=== PATIENT | male | born 1955 | race Caucasian/White ===

== ENCOUNTER 2017-12-01 06:30 | Emergency (ER) | payer OTHER ==
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
[2017-12-01 08:37] VITALS: BP 157/93; PULSE 60; RESP 18; TEMP 98.3
== END 2017-12-01 08:15 | disposition home or self-care (01) ==
LOC: EC 06:30
DX: S00.83XA Contusion of other part of head, initial encounter (principal); F17.200 Nicotine dependence, unspecified, uncomplicated; V47.6XXA Car passenger injured in collision with fixed or stationary object in traffic accident, initial encounter; W22.12XA Striking against or struck by front passenger side automobile airbag, initial encounter; Y92.410 Unspecified street and highway as the place of occurrence of the external cause
CPT/HCPCS: 70450; 72125; 99284

== ENCOUNTER 2018-06-29 07:59 | Emergency (ER) | payer OTHER ==
[2018-06-29 08:07] VITALS: RESP 18; TEMP 98.3
[2018-06-29] MEDS ORDERED: LIDOCAINE 1% INJ 10MG/ML (20 ML MDV) SQ ONE (08:19)
[2018-06-29] MEDS ORDERED: DIPH,PERTUS(ACELL)TETVAC-LF 0.5 ML VIAL IM ONE (08:19)
[2018-06-29] MEDS ORDERED: SODIUM CHLORIDE 0.9% IRRIG 1,000 ML BTL IRRIGATION ONE (08:23)
[2018-06-29] MEDS ORDERED: CEPHALEXIN 500MG STARTER PACK 4 CAP BTL PO STA (08:41)
--- NOTE | 2018-06-29 08:42 | XR ---
Third digit left hand HISTORY: Trauma and pain 3 views of the third digit of the left hand There is a nondisplaced tuft fracture of the third digit of the left hand, lucency present on the fro ntal view. No dislocation. Metallic foreign body is noted overlying the second metacarpal. Soft tissu e swelling noted at the third digit. IMPRESSION: Nondisplaced tuft fracture.
[2018-06-29] MEDS ORDERED: ceFAZolin 1,000 MG VIAL IM STA (08:43)
--- NOTE | 2018-06-29 08:46 | ED ---
Wound/Laceration HPI - General Chief Complaint: Wound/Laceration Stated Complaint: [facility] - finger lac Time Seen by Provider: 06/29/18 08:08 Source: patient, RN notes reviewed Mode of arrival: ambulatory Limitations: no limitations - History of Present Illness Initial Comments: 62-year-old male presents emergency Department with chief complaint of finger l aceration. Patient states that he was trying to fix the tailgate on the heel former trailer states that he pinched it between the tailgate and a sealed King. Patient states it's blistering in open wound. Patient cannot remember when his last tetanus was. Patient denies any difficulty moving his finger. Patient offers no other complaints. - Related Data Previous Rx's Medication Instructions Recorded Cephalexin [Keflex] 500 mg PO Q6HR #28 cap 06/29/18 Allergies Allergy/AdvReac Type Severity Reaction Status Date / Time No Known Allergies Allergy Verified 06/29/18 08:18 Review of Systems ROS Statement: Those systems with pertinent positive or pertinent negative responses have been documented in the HPI. ROS Other: All systems not noted in ROS Statement are negative. Past Medical History Past Medical History: Hypertension History of Any Multi-Drug Resistant Organisms: None Reported Past Surgical History: No Surgical Hx Reported Past Psychological History: No Psychological Hx Reported Smoking Status: Current every day smoker Past Alcohol Use History: Occasional Past Drug Use History: None Reported General Exam Limitations: no limitations General appearance: alert, in no apparent distress Respiratory exam: Present: normal lung sounds bilaterally. Absent: respiratory distress, wheezes, rales, rhonchi, stridor Cardiovascular Exam: Present: regular rate, normal rhythm, normal heart sounds. Absent: systolic murmur, diastolic murmur, rubs, gallop, clicks Extremities exam: Present: other (Left hand third digit there is a 2 cm laceration at the distal tip patient's full range of motion Reflux 2 seconds there is also noted blister proximally 1 cm diameter proximal to the wound) Skin exam: Present: warm, dry Course Vital Signs 06/29/18 08:03 Temperature 98.3 F Pulse Rate 71 Respiratory 18 Rate Blood Pressure 161/99 O2 Sat by Pulse 99 Oximetry Procedures - Laceration Laceration #1 Consent Obtained: verbal consent Site: hand (Left hand third digit) Size (cm): 2 Description: linear Depth: simple, single layer Anesthetic Used: lidocaine 1%, without epi Anesthesia Technique: local infiltration Amount (mls): 3 Pre-repair: wound explored, irrigated extensively, deep structures intact Type of Sutures: nylon Size of Sutures: 4-0 Number of Sutures: 4 Technique: simple, interrupted Patient Tolerated Procedure: well, no complications Medical Decision Making - Medical Decision Making 62-year-old male presented for finger laceration. This was thoroughly cleaned, closed. Patient does have a tuft fracture. Patient was started on antibiotics, placed in a finger splint and will follow-up for recheck. Disposition Clinical Impression: Open finger fracture Disposition: HOME SELF-CARE Condition: Stable Instructions (If sedation given, give patient instructions): Care For Your Stitches (ED), Finger Fracture (ED) Additional Instructions: Have sutures removed in 10 days.Please return to the Emergency Department if symptoms worsen or any other concerns. Prescriptions: Cephalexin [Keflex] 500 mg PO Q6HR #28 cap Is patient prescribed a controlled substance at d/c from ED?: No Referrals: None,Stated [Primary Care Provider] - 1-2 days Time of Disposition: 08:46
[2018-06-29 09:13] VITALS: BP 135/93; PULSE 66
== END 2018-06-29 09:13 | disposition home or self-care (01) ==
LOC: EC 07:59
DX: S62.663B Nondisplaced fracture of distal phalanx of left middle finger, initial encounter for open fracture (principal); F17.200 Nicotine dependence, unspecified, uncomplicated; Z23 Encounter for immunization; W23.0XXA Caught, crushed, jammed, or pinched between moving objects, initial encounter; Y93.89 Activity, other specified; Y92.69 Other specified industrial and construction area as the place of occurrence of the external cause; Y99.0 Civilian activity done for income or pay
CPT/HCPCS: 73140; 90715; 99283; 12001; 96372; 90471; J0690; J2001

== ENCOUNTER 2020-02-08 11:35 | Inpatient (IN) | payer OTHER ==
[2020-02-08] MEDS ORDERED: SODIUM CHLORIDE 0.9% 500 ML 500 ML IV STA (12:03)
[2020-02-08 12:13] LABS: Glucose,Whole Blood 160 mg/dL (75-99)
[2020-02-08 12:17] LABS: Basophils % (A) 0 %; Eosinophils # (A) 0.1 k/uL (0-0.7); Eosinophils % (A) 2 %; HCT 46.8 % (39.0-53.0); HGB 15.8 gm/dL (13.0-17.5); Lymphocytes # (A) 1.4 k/uL (1.0-4.8); Lymphocytes % (A) 20 %; MCH 31.7 pg (25.0-35.0); MCHC 33.8 g/dL (31.0-37.0); MCV 94.1 fL (80.0-100.0); Monocytes # (A) 0.4 k/uL (0-1.0); Monocytes % (A) 6 %; Neutrophils # (A) 5.1 k/uL (1.3-7.7); Neutrophils % (A) 71 %; Platelet Count 254 k/uL (150-450); RBC 4.97 m/uL (4.30-5.90); RDW 12.9 % (11.5-15.5); WBC 7.1 k/uL (3.8-10.6)
--- NOTE | 2020-02-08 12:18 | ED ---
General Adult HPI - General Chief complaint: Dizziness Stated complaint: syncope Time Seen by Provider: 02/08/20 11:51 Source: patient, family, RN notes reviewed, old records reviewed Mode of arrival: wheelchair Limitations: no limitations - History of Present Illness Initial comments: 64-year-old male presenting for evaluation of syncope. Patient had a syncopal episode yesterday he states he believes he was only unconscious for approximately several seconds. He was taking out trash at the time. He is uncertain if he hit his head. He is not on any blood thinners. He states he's felt lightheaded for the past several days. This is worse with standing. He denies current chest pain or dyspnea. He states that on Friday which was 4 days prior to arrival he had an episode of substernal chest pain which lasted several hours. He did not seek medical attention at this time. He has no known history of coronary artery disease. He has history of current tobacco use and states he does drink alcoholic occasional but has not had a drink in the past one week. - Related Data Home Medications Medication Instructions Recorded Confirmed No Known Home Medications 02/08/20 02/08/20 Allergies Allergy/AdvReac Type Severity Reaction Status Date / Time No Known Allergies Allergy Verified 02/08/20 13:06 Review of Systems ROS Statement: Those systems with pertinent positive or pertinent negative responses have been documented in the HPI. ROS Other: All systems not noted in ROS Statement are negative. Past Medical History Past Medical History: Hypertension History of Any Multi-Drug Resistant Organisms: None Reported Past Surgical History: No Surgical Hx Reported Past Psychological History: No Psychological Hx Reported Smoking Status: Current every day smoker Past Alcohol Use History: Occasional Past Drug Use History: None Reported General Exam Limitations: no limitations General appearance: alert, in no apparent distress Head exam: Present: atraumatic, normocephalic Eye exam: Present: normal appearance, PERRL ENT exam: Present: mucous membranes dry Neck exam: Present: normal inspection. Absent: tenderness, meningismus Respiratory exam: Present: normal lung sounds bilaterally. Absent: respiratory distress, wheezes Cardiovascular Exam: Present: regular rate, normal rhythm GI/Abdominal exam: Present: soft. Absent: distended, tenderness, guarding, rebound Extremities exam: Present: normal inspection, normal capillary refill Back exam: Present: normal inspection Neurological exam: Present: alert, oriented X3, CN II-XII intact. Absent: motor sensory deficit Psychiatric exam: Present: normal affect, normal mood Skin exam: Present: warm, dry, intact. Absent: cyanosis, diaphoretic Course Vital Signs 02/08/20 02/08/20 02/08/20 11:38 11:50 13:02 Temperature 97.8 F Pulse Rate 91 82 Respiratory 16 18 Rate Blood Pressure 122/80 108/78 Blood Pressure 121/79 [Right Arm Sitting] Blood Pressure 95/69 [Right Arm Standing] Blood Pressure 120/83 [Right Arm Supine] O2 Sat by Pulse 98 97 Oximetry - Reevaluation(s) Reevaluation #1: 02/08/20 13:31 Patient has had no chest pain while in the emergency department. EKG Findings - EKG Comments: EKG Findings:: EKG: Normal sinus rhythm, left atrial enlargement, incomplete right bundle-branch block T-wave inversion throughout the inferior leads as well as the precordial leads, ST segment depression in the precordial leads V3 through V6. No ST segment elevation, rate of 87, W[place] interval 142, QRS duration 112, QTC 466. Medical Decision Making - Medical Decision Making 64-year-old male presents for evaluation of lightheadedness, and episode of chest pain which was 4 days prior to arrival episode chest pain was substernal lasting several hours. He's had no chest pain while in the emergency department over the past several days. He has no known history of coronary artery disease. EKG shows T-wave inversion as well as ST segment depression. There is no ST segment elevation. Chest x-ray is clear. He had a fall with unknown head injury, CT head is negative for intracranial hemorrhage. He has a normal CBC, normal CMP, initial troponin is high at 5 suggestive of a completed infarction. The patient is started on heparin. I discussed case with the admitting physician Dr. Dow and the watch dial printer Dr. Dotson. - Lab Data Result diagrams: 02/08/20 12:08 02/08/20 12:08 Lab Results 02/08/20 02/08/20 02/08/20 Range/Units 12:02 12:08 12:08 WBC 7.1 (3.8-10.6) k/uL RBC 4.97 (4.30-5.90) m/uL Hgb 15.8 (13.0-17.5) gm/dL Hct 46.8 (39.0-53.0) % MCV 94.1 (80.0-100.0) fL MCH 31.7 (25.0-35.0) pg MCHC 33.8 (31.0-37.0) g/dL RDW 12.9 (11.5-15.5) % Plt Count 254 (150-450) k/uL MPV 7.0 Neutrophils % 71 % Lymphocytes % 20 % Monocytes % 6 % Eosinophils % 2 % Basophils % 0 % Neutrophils # 5.1 (1.3-7.7) k/uL Lymphocytes # 1.4 (1.0-4.8) k/uL Monocytes # 0.4 (0-1.0) k/uL Eosinophils # 0.1 (0-0.7) k/uL Basophils # 0.0 (0-0.2) k/uL PT 9.9 (9.0-12.0) sec INR 0.9 (<1.2) APTT 26.9 (22.0-30.0) sec Sodium (137-145) mmol/L Potassium (3.5-5.1) mmol/L Chloride (98-107) mmol/L Carbon Dioxide (22-30) mmol/L Anion Gap mmol/L BUN (9-20) mg/dL Creatinine (0.66-1.25) mg/dL Est GFR (CKD-EPI)AfAm (>60 ml/min/1.73 sqM) Est GFR (CKD-EPI)NonAf (>60 ml/min/1.73 sqM) Glucose (74-99) mg/dL POC Glucose (mg/dL) 160 H (75-99) mg/dL POC Glu Manager Labor Delivery ID Reina Márquez Calcium (8.4-10.2) mg/dL Magnesium (1.6-2.3) mg/dL Total Bilirubin (0.2-1.3) mg/dL AST (17-59) U/L ALT (4-49) U/L Alkaline Phosphatase (38-126) U/L Troponin I (0.000-0.034) ng/mL Total Protein (6.3-8.2) g/dL Albumin (3.5-5.0) g/dL Lipase (23-300) U/L 02/08/20 02/08/20 02/08/20 Range/Units 12:08 12:08 12:08 WBC (3.8-10.6) k/uL RBC (4.30-5.90) m/uL Hgb (13.0-17.5) gm/dL Hct (39.0-53.0) % MCV (80.0-100.0) fL MCH (25.0-35.0) pg MCHC (31.0-37.0) g/dL RDW (11.5-15.5) % Plt Count (150-450) k/uL MPV Neutrophils % % Lymphocytes % % Monocytes % % Eosinophils % % Basophils % % Neutrophils # (1.3-7.7) k/uL Lymphocytes # (1.0-4.8) k/uL Monocytes # (0-1.0) k/uL Eosinophils # (0-0.7) k/uL Basophils # (0-0.2) k/uL PT (9.0-12.0) sec INR (<1.2) APTT (22.0-30.0) sec Sodium 139 (137-145) mmol/L Potassium 4.2 (3.5-5.1) mmol/L Chloride 107 (98-107) mmol/L Carbon Dioxide 25 (22-30) mmol/L Anion Gap 7 mmol/L BUN 19 (9-20) mg/dL Creatinine 1.01 (0.66-1.25) mg/dL Est GFR (CKD-EPI)AfAm >90 (>60 ml/min/1.73 sqM) Est GFR (CKD-EPI)NonAf 79 (>60 ml/min/1.73 sqM) Glucose 169 H (74-99) mg/dL POC Glucose (mg/dL) (75-99) mg/dL POC Glu Manager Labor Delivery ID Calcium 9.2 (8.4-10.2) mg/dL Magnesium 2.0 (1.6-2.3) mg/dL Total Bilirubin 0.8 (0.2-1.3) mg/dL AST 57 (17-59) U/L ALT 23 (4-49) U/L Alkaline Phosphatase 73 (38-126) U/L Troponin I 5.110 H* (0.000-0.034) ng/mL Total Protein 7.2 (6.3-8.2) g/dL Albumin 4.0 (3.5-5.0) g/dL Lipase 57 (23-300) U/L Critical Care Time Critical Care Time: Yes Total Critical Care Time: 35 Disposition Clinical Impression: NSTEMI (non-ST elevated myocardial infarction) Disposition: ADMITTED IP TO THIS [facility] Condition: Stable Is patient prescribed a controlled substance at d/c from ED?: No Referrals: None,Stated [Primary Care Provider] - 1-2 days Decision to Admit Reason: Admit from EC Decision Date: 02/08/20 Decision Time: 13:34
[2020-02-08 12:31] LABS: ALT 23 U/L (4-49); AST 57 U/L (17-59); African American GFR (CKD) >90 (>60 ml/min/1.73 sqM); Alkaline Phosphatase 73 U/L (38-126); Anion Gap 7 mmol/L; Blood Urea Nitrogen 19 mg/dL (9-20); Calcium 9.2 mg/dL (8.4-10.2); Carbon Dioxide 25 mmol/L (22-30); Chloride 107 mmol/L (98-107); Glucose 169 mg/dL (74-99); Non-African American GFR(CKD) 79 (>60 ml/min/1.73 sqM); Potassium 4.2 mmol/L (3.5-5.1); Sodium 139 mmol/L (137-145); Total Bilirubin 0.8 mg/dL (0.2-1.3); Total Protein 7.2 g/dL (6.3-8.2)
[2020-02-08 12:33] LABS: INR 0.9 (<1.2); Partial Thromboplastin Time 26.9 sec (22.0-30.0); Prothrombin Time 9.9 sec (9.0-12.0)
--- NOTE | 2020-02-08 12:50 | CT ---
EXAMINATION TYPE: CT brain wo con DATE OF EXAM: 02/08/2020 HISTORY: Fall injury with headache. CT DLP: 1025.4 mGycm. Automated Exposure Control for Dose Reduction was Utilized. TECHNIQUE: CT scan of the head is performed without contrast. COMPARISON: CT brain December 01, 2017. FINDINGS: There is no acute intracranial hemorrhage or midline shift identified. There is diffuse v entricular and sulcal prominence consistent with diffuse age-related cerebral atrophy. There is low- attenuation in the periventricular white matter consistent with chronic small vessel ischemic change. The globes are intact and the visualized sinuses are clear. The calvarium is intact. IMPRESSION: No acute intracranial hemorrhage or midline shift. There is mild diffuse age-related ce rebral atrophy and chronic small vessel ischemic change redemonstrated.
[2020-02-08] MEDS ORDERED: HEPARIN SODIUM,PORCINE 5,000 UNIT/ML 1 ML VIAL IV PRN (13:18)
[2020-02-08] MEDS ORDERED: ASPIRIN 325 MG TAB PO STA (13:18)
[2020-02-08] MEDS ORDERED: HEPARIN SODIUM,PORCINE 5,000 UNIT/ML 1 ML VIAL IV ONE (13:18)
--- NOTE | 2020-02-08 13:24 | XR ---
EXAMINATION TYPE: XR chest 2V DATE OF EXAM: 02/08/2020 COMPARISON: NONE HISTORY: Syncope and chest pain TECHNIQUE: Frontal and lateral views of the chest are obtained. FINDINGS: There is no focal air space opacity, pleural effusion, or pneumothorax seen. The cardiac silhouette size is within normal limits. The osseous structures are intact. Aorta is dense. There a re overlying leads. Patient is rotated. IMPRESSION: No acute cardiopulmonary process.
[2020-02-08] MEDS: HEPARIN SOD,PORK IN 0.45% NACL 25,000 UNIT in 0.45% NACL 1 250ML.BAG IV SCH (13:25)
[2020-02-08] MEDS ORDERED: NITROGLYCERIN SL TABS 0.4 MG TAB SUBLINGUAL PRN (13:28)
[2020-02-08 16:21] LABS: Appearance,Urine Clear (Clear); Bilirubin,Urine Negative (Negative); Blood,Urine Negative (Negative); Color,Urine Yellow; Glucose,Urine (UA) Negative (Negative); Ketones,Urine Negative (Negative); Leukocyte Esterase,Urine Negative (Negative); Nitrite,Urine Negative (Negative); Protein,Urine Trace (Negative); Specific Gravity,Urine 1.027 (1.001-1.035)
[2020-02-08] MEDS ORDERED: HYDROcodone/APAP 5-325MG 1 EACH TAB PO PRN (17:30)
[2020-02-08] MEDS ORDERED: ACETAMINOPHEN TAB 500 MG TAB PO PRN (17:30)
[2020-02-08] MEDS ORDERED: TEMAZEPAM 15 MG CAP PO PRN (17:30)
[2020-02-08] MEDS ORDERED: ALPRAZolam 0.25 MG TAB PO PRN (17:30)
--- NOTE | 2020-02-08 18:00 | ECHOF ---
Referral Reason:NSTEMI MEASUREMENTS -------- HEIGHT: 190.5 cm WEIGHT: 106.6 kg BP: 95/69 IVSd: 1.4 cm (0.6 - 1.1) LVIDd: 5.3 cm (3.9 - 5.3) LVPWd: 1.2 cm (0.6 - 1.1) IVSs: 1.5 cm LVIDs: 3.6 cm LVPWs: 1.8 cm RVIDd: 3.5 cm (< 3.3) LAESV Index (A-L): 36.29 ml/m Ao Diam: 3.6 cm (2.0 - 3.7) LA Diam: 4.6 cm (2.7 - 3.8) AV Cusp: 2.2 cm (1.5 - 2.6) EPSS: 0.3 cm MV E Marco Antonio: 0.54 m/s MV DecT: 205 ms MV A Marco Antonio: 0.37 m/s MV E/A Ratio: 1.47 RAP: 5.00 mmHg RVSP: 36.65 mmHg MV EF SLOPE: 148.58 mm/s (70 - 150) MV EXCURSION: 32.16 mm (> 18.000) FINDINGS -------- Sinus rhythm. This was a technically difficult study with suboptimal views. The left ventricular size is normal. There is moderate concentric left ventricular hypertrophy. O verall left ventricular systolic function is normal with, an EF between 55 - 60 %. The right ventricle is mildly enlarged. LA is moderately dilated 34-39 ml/m2 The right atrium is mildly enlarged. 5.0mg of Lumason was utilized for enhancement of images Interatrial and interventricular septum intact. The aortic valve is trileaflet and appears structurally normal. There is no evidence of aortic regu rgitation. There is no evidence of aortic stenosis. [id number] mitral regurgitation is present. Mild tricuspid regurgitation present. There is mild pulmonary hypertension. The right ventricular systolic pressure, as measured by Doppler, is 36.65mmHg. There is no pulmonic regurgitation present. The aortic root size is normal. The inferior vena cava is mildly dilated. There is no pericardial effusion. CONCLUSIONS -------- 1. The left ventricular size is normal. 2. There is moderate concentric left ventricular hypertrophy. 3. Overall left ventricular systolic function is normal with, an EF between 55 - 60 %. 4. The right ventricle is mildly enlarged. 5. LA is moderately dilated 34-39 ml/m2 6. The right atrium is mildly enlarged. 7. [id number] mitral regurgitation is present. 8. Mild tricuspid regurgitation present. 9. There is mild pulmonary hypertension. 10. The right ventricular systolic pressure, as measured by Doppler, is 36.65mmHg. LINING PRINTER: Ingrid Moreira RDCS
--- NOTE | 2020-02-08 18:26 | HP ---
HISTORY AND PHYSICAL DATE OF SERVICE: 02/08/2020 CHIEF COMPLAINT: Chest pain. HISTORY OF PRESENT ILLNESS: This 64-year-old gentleman with a past medical history of hypertension and history of nicotine dependence is not being followed by any primary physician in the outpatient setting. The patient had an episode of chest pain which lasted for at least an hour, felt in the epigastrium without much radiation, without any associated sweating, on Friday. The patient did not seek any medical attention, but subsequently the patient had a syncopal episode the next day, and today also the patient had a syncopal episode. Patient complains of weakness. The patient came to [facility] and was admitted for evaluation and treatment. Glucose was found to be 169 and troponin was found to be 5.110 and 7.100, indicating acute myocardial infarction. EKG showed diffuse ST-T changes and incomplete right bundle branch block also. There is no history of any fever, rigor or chills. No history of headache, loss of consciousness, seizures. No history any contact with the COVID infection. PAST MEDICAL HISTORY: Hypertension, history of nicotine dependence. MEDICATIONS PRIOR TO ADMISSION: None. ALLERGIES: NONE. FAMILY HISTORY: History of diabetes mellitus, myocardial infarction in the family. SOCIAL HISTORY: History of smoking, continued and ongoing. No history of alcohol intake. REVIEW OF SYSTEMS: ENT: No diminished hearing. No diminished vision. CARDIOVASCULAR SYSTEM: As mentioned earlier. RESPIRATORY SYSTEM: As mentioned earlier. GI: No nausea, vomiting. : No dysuria or retention. NERVOUS SYSTEM: No numbness, weakness. ALLERGY/IMMUNOLOGY: No asthma, hayfever. MUSCULOSKELETAL: As mentioned earlier. HEMATOLOGY/ONCOLOGY: No history of anemia. ENDOCRINE: No history of diabetes, hypothyroidism. CONSTITUTIONAL: As mentioned earlier. DERMATOLOGY: Negative. RHEUMATOLOGY: Negative. PSYCHIATRY: As mentioned earlier. PHYSICAL EXAMINATION: Patient alert and oriented x3. Pulse 75, blood pressure 116/68, respiration 18, temperature 98.8, pulse ox 97% on room air. HEENT: Conjunctivae normal. NECK: No jugular venous distention. CARDIOVASCULAR SYSTEM: S1, S2 muffled. RESPIRATORY SYSTEM: Breath sounds diminished at the bases. No rhonchi. No crackles. ABDOMEN: Soft, non-tender. No mass palpable. LEGS: No edema. No swelling. NERVOUS SYSTEM: Higher functions as mentioned earlier. Moves all 4 limbs. No focal motor or sensory deficit. LYMPHATICS: No lymph node palpable in neck, axillae or groin. SKIN: No ulcer, rash, bleeding. JOINTS: No active deforming arthropathy. LABS/IMAGING: CBC within normal limits and PT/INR is normal. CMP showed glucose 169. Troponin is noted. EKG reviewed personally. Otherwise, a CT of the brain showed no intracranial abnormality. The chest x-ray showed no acute abnormality. ASSESSMENT: 1. Chest pain, possible acute ecp-ZV-xwbtsff-elevation myocardial infarction. 2. Troponin elevated up to 5.110. 3. Syncope for evaluation, possibly cardiogenic. 4. Elevated blood glucose. Rule out diabetes mellitus, type 2. 5. History of hypertension. 6. History of nicotine dependence. RECOMMENDATIONS AND DISCUSSION: In this 64-year-old gentleman who presented with multiple complex medical issues, we will monitor the patient closely, continue the current medications, continue symptomatic treatment, continue antiplatelet agents, IV heparin, acute coronary syndrome protocol. Monitor closely. I also recommend beta blockers once the blood pressure is stabilized. Otherwise, I would recommend Lipitor and possible cardiac catheterization, smoking cessation. Habitrol 14 daily. Symptomatic treatment. I would also recommend continued followup in the outpatient setting. Prognosis is guarded because of multiple complex medical issues. Further recommendations to follow. MMODL / IJN: [id number] /
[2020-02-08] MEDS: NICOTINE 14MG/24HR PATCH TRANSDERM SCH (18:44)
[2020-02-08] MEDS ORDERED: ATORVASTATIN 40 MG TAB PO SCH (21:00)
[2020-02-09 02:46] LABS: Basophils # (A) 0.1 k/uL (0-0.2); Basophils % (A) 1 %; Eosinophils # (A) 0.2 k/uL (0-0.7); Eosinophils % (A) 2 %; HCT 42.1 % (39.0-53.0); HGB 14.3 gm/dL (13.0-17.5); Lymphocytes # (A) 2.2 k/uL (1.0-4.8); Lymphocytes % (A) 29 %; MCH 32.3 pg (25.0-35.0); Monocytes # (A) 0.5 k/uL (0-1.0); Monocytes % (A) 6 %; Neutrophils # (A) 4.6 k/uL (1.3-7.7); Neutrophils % (A) 60 %; Platelet Count 212 k/uL (150-450); RBC 4.43 m/uL (4.30-5.90); RDW 12.4 % (11.5-15.5); WBC 7.7 k/uL (3.8-10.6)
[2020-02-09 03:30] LABS: African American GFR (CKD) >90 (>60 ml/min/1.73 sqM); Anion Gap 6 mmol/L; Blood Urea Nitrogen 17 mg/dL (9-20); Calcium 8.6 mg/dL (8.4-10.2); Carbon Dioxide 26 mmol/L (22-30); Chloride 107 mmol/L (98-107); Cholesterol 199 mg/dL (<200); Glucose 126 mg/dL (74-99); HDL Cholesterol 31 mg/dL (40-60); LDL Cholesterol,Calculated 137 mg/dL (0-99); Non-African American GFR(CKD) >90 (>60 ml/min/1.73 sqM); Potassium 4.3 mmol/L (3.5-5.1); Sodium 139 mmol/L (137-145); Triglycerides 153 mg/dL (<150)
[2020-02-09] MEDS: PANTOPRAZOLE 40 MG TABLET PO SCH (06:36)
[2020-02-09] MEDS: ASPIRIN 325 MG TAB PO SCH (09:35)
[2020-02-09] MEDS: NICOTINE 14MG/24HR PATCH TRANSDERM SCH (09:35)
--- NOTE | 2020-02-09 10:30 | P.CRDCN ---
History of Present Illness Consult date: 02/09/20 Chief complaint: Loss of consciousness History of present illness: This is a pleasant 64-year-old gentleman with history of smoking and significant family history of coronary artery disease who was admitted to the hospital with acute coronary syndrome. The patient was in his usual state of health until this past Friday when he started experiencing chest discomfort. The chest discomfort was located in the mid of the chest and also in the epigastric area. No radiation to the arms or neck or shoulders and no associated symptoms. He took some antitussives medication with improvement in the symptoms and the patient did not seek any medical attention at that point. The following day on Friday he was going to get his fashion out when he did have an episode of syncope was not witnessed by anybody but the patient stated that he definitely lost his consciousness and found himself on the ground. He stated that he probably lost his consciousness for a few seconds. Because of that he decided to come to the hospital because he continues to feel dizzy and lightheaded. In the ER the troponin came in to be abnormal and consistent with acute coronary syndrome. The EKG showed sinus rhythm with Q wave inferiorly and T-wave inversion inferiorly as well. The patient underwent an echocardiogram which revealed normal left ventricular systolic function without any significant valvular abnormalities. Currently the patient is on aspirin as well as statin as well as heparin IV. I advised the patient to undergo a coronary angiogram. Past Medical History Past Medical History: Hypertension History of Any Multi-Drug Resistant Organisms: None Reported Past Surgical History: No Surgical Hx Reported Past Anesthesia/Blood Transfusion Reactions: No Reported Reaction Past Psychological History: No Psychological Hx Reported Smoking Status: Current every day smoker Past Alcohol Use History: Occasional Past Drug Use History: None Reported - Past Family History Father Family Medical History: Diabetes Mellitus, Myocardial Infarction ([place]) Mother Family Medical History: Diabetes Mellitus, Myocardial Infarction ([place]) Medications and Allergies Home Medications Medication Instructions Recorded Confirmed Type No Known Home Medications 02/08/20 02/08/20 History Allergies Allergy/AdvReac Type Severity Reaction Status Date / Time No Known Allergies Allergy Verified 02/08/20 13:06 Physical Exam Vitals: Vital Signs Temp Pulse Pulse Resp BP BP BP 02/09/20 08:00 98.3 F 65 18 106/69 02/09/20 04:00 97.9 F 67 17 129/75 02/09/20 00:00 98.1 F 67 18 101/66 02/08/20 20:00 98.3 F 74 18 99/70 02/08/20 18:00 50 L 16 02/08/20 14:50 98.8 F 75 18 116/68 02/08/20 14:10 98 F 81 18 125/68 02/08/20 13:02 82 18 108/78 02/08/20 11:50 121/79 95/69 02/08/20 11:38 97.8 F 91 16 122/80 BP Pulse Ox 02/09/20 08:00 98 02/09/20 04:00 98 02/09/20 00:00 98 02/08/20 20:00 94 L 02/08/20 18:00 126/70 100 02/08/20 14:50 97 02/08/20 14:10 97 02/08/20 13:02 97 02/08/20 11:50 120/83 02/08/20 11:38 98 Intake and Output 02/08/20 02/09/20 02/09/20 22:59 06:59 14:59 Intake Total 480 153.094 Output Total 300 250 Balance 180 -96.906 Intake: Intake, IV Titration 153.094 Amount Heparin Sod,Pork in 0.45% 153.094 NaCl 25,000 unit In 0.45 % NaCl 1 250ml.bag @ 9.38 UNITS/KG/HR 9.999 mls/hr IV .Q24H [facility] Rx#: [id number] Oral 480 Output: Urine 300 250 Other: Voiding Method Urinal # Voids 1 1 Weight 100.7 kg - Constitutional General appearance: no acute distress - Respiratory Respiratory: bilateral: CTA - Cardiovascular Rhythm: regular Heart sounds: normal: S1, S2 Results 02/09/20 02:32 02/09/20 02:32 Cardiac Enzymes 02/08/20 02/08/20 02/08/20 Range/Units 12:08 12:08 15:25 AST 57 (17-59) U/L Troponin I 5.110 H* 7.610 H* (0.000-0.034) ng/mL 02/08/20 Range/Units 18:43 AST (17-59) U/L Troponin I 7.330 H* (0.000-0.034) ng/mL Coagulation 02/08/20 02/08/20 02/09/20 Range/Units 12:08 18:43 02:32 PT 9.9 (9.0-12.0) sec APTT 26.9 34.5 H 42.2 H (22.0-30.0) sec Lipids 02/09/20 Range/Units 02:32 Triglycerides 153 H (<150) mg/dL Cholesterol 199 (<200) mg/dL HDL Cholesterol 31 L (40-60) mg/dL CBC 02/08/20 02/09/20 Range/Units 12:08 02:32 WBC 7.1 7.7 (3.8-10.6) k/uL RBC 4.97 4.43 (4.30-5.90) m/uL Hgb 15.8 14.3 (13.0-17.5) gm/dL Hct 46.8 42.1 (39.0-53.0) % Plt Count 254 212 (150-450) k/uL Comprehensive Metabolic Panel 02/08/20 02/09/20 Range/Units 12:08 02:32 Sodium 139 139 (137-145) mmol/L Potassium 4.2 4.3 (3.5-5.1) mmol/L Chloride 107 107 (98-107) mmol/L Carbon Dioxide 25 26 (22-30) mmol/L BUN 19 17 (9-20) mg/dL Creatinine 1.01 0.87 (0.66-1.25) mg/dL Glucose 169 H 126 H (74-99) mg/dL Calcium 9.2 8.6 (8.4-10.2) mg/dL AST 57 (17-59) U/L ALT 23 (4-49) U/L Alkaline Phosphatase 73 (38-126) U/L Total Protein 7.2 (6.3-8.2) g/dL Albumin 4.0 (3.5-5.0) g/dL Current Medications Generic Name Dose Route Start Last Admin Trade Name Freq PRN Reason Stop Dose Admin Acetaminophen 500 mg 02/08/20 17:30 Acetaminophen Tab 500 Mg Tab PO Q6HR PRN Fever and/ or Pain Hydrocodone Bitart/Acetaminophen 1 each 02/08/20 17:30 Hydrocodone/Apap 5-325mg 1 Each Tab PO Q6HR PRN Pain Alprazolam 0.25 mg 02/08/20 17:30 Alprazolam 0.25 Mg Tab PO TID PRN Anxiety Aspirin 325 mg 02/09/20 09:00 02/09/20 09:35 Aspirin 325 Mg Tab PO 325 mg DAILY BECKA Administration Atorvastatin Calcium 80 mg 02/09/20 21:00 Atorvastatin 40 Mg Tab PO HS BECKA Heparin Sodium (Porcine) 0 unit 02/08/20 13:18 Heparin Sodium,Porcine 5,000 Unit/Ml 1 Ml Vial IV PER PROTOCOL PRN Low PTT Protocol Heparin Sodium/Sodium Chloride 250 mls @ 9.999 mls/hr 02/08/20 13:30 02/09/20 03:25 25,000 unit/ Sodium Chloride IV 14.38 units/kg/hr .Q24H BECKA 15.328 mls/hr Titration Protocol 9.38 UNITS/KG/HR Nicotine 1 patch 02/08/20 17:30 02/09/20 09:35 Nicotine 14mg/24hr Patch TRANSDERM 1 patch DAILY BECKA Administration Nitroglycerin 0.4 mg 02/08/20 13:28 Nitroglycerin Sl Tabs 0.4 Mg Tab SUBLINGUAL Q5M PRN Chest Pain Pantoprazole Sodium 40 mg 02/09/20 07:30 02/09/20 06:36 Pantoprazole 40 Mg Tablet PO 40 mg AC-BRKFST BECKA Administration Temazepam 15 mg 02/08/20 17:30 Temazepam 15 Mg Cap PO HS PRN Insomnia Intake and Output 02/08/20 02/09/20 02/09/20 22:59 06:59 14:59 Intake Total 480 153.094 Output Total 300 250 Balance 180 -96.906 Intake: Intake, IV Titration 153.094 Amount Heparin Sod,Pork in 0.45% 153.094 NaCl 25,000 unit In 0.45 % NaCl 1 250ml.bag @ 9.38 UNITS/KG/HR 9.999 mls/hr IV .Q24H [facility] Rx#: [id number] Oral 480 Output: Urine 300 250 Other: Voiding Method Urinal # Voids 1 1 Weight 100.7 kg 02/09/20 02:32 02/09/20 02:32 Assessment and Plan Assessment: Assessment #1 acute non-ST elevation myocardial infarction #2 history of smoking #3 significant family history of coronary artery disease Plan #1 continue the aspirin and heparin and statin #2 increase the dose of Lipitor to 80 mg by mouth daily at bedtime #3 the echocardiogram was reviewed #4 proceed with coronary angiogram #5 follow-up with the patient
[2020-02-09] MEDS: HEPARIN SOD,PORK IN 0.45% NACL 25,000 UNIT in 0.45% NACL 1 250ML.BAG IV SCH (11:56)
[2020-02-09] MEDS ORDERED: IV FLUID CONTINUATION 1,000 ML IV ONE (13:27)
[2020-02-09] MEDS ORDERED: HEPARIN SODIUM 1,000 UN/ML (10ML VL) ONE ×2 (13:29→14:20)
[2020-02-09] MEDS ORDERED: LIDOCAINE 1% INJ 10MG/ML (20 ML MDV) ONE (13:29)
[2020-02-09] MEDS ORDERED: VERAPAMIL 2.5 MG/ML 2 ML AMP ONE (13:29)
[2020-02-09] MEDS ORDERED: MIDAZOLAM 2 MG/2 ML VIAL IV ONE (13:35)
[2020-02-09] MEDS ORDERED: LIDOCAINE 1% INJ 10MG/ML (20 ML MDV) SQ ONE (13:39)
[2020-02-09] MEDS ORDERED: VERAPAMIL SYRINGE (5 MG/10 ML) INTRAARTER ONE (13:40)
[2020-02-09] MEDS ORDERED: HEPARIN SODIUM 1,000 UN/ML (10ML VL) IV ONE ×2 (13:43→14:20)
[2020-02-09] MEDS ORDERED: PRASUGREL 10 MG TAB ONE ×3 (14:46→14:47)
[2020-02-09] MEDS ORDERED: PRASUGREL 10 MG TAB PO ONE (14:51)
[2020-02-09] MEDS ORDERED: IOPAMIDOL-370 100ML BTL INJ ONE (15:08)
[2020-02-09] MEDS ORDERED: RX INFO: IV CONTRAST WAS GIVEN 1 EACH MISC MISCELLANE PRN (15:24)
[2020-02-09] MEDS ORDERED: ATROPINE SULFATE 0.1 MG/ML 10ML SYRINGE IV PRN (15:24)
[2020-02-09] MEDS ORDERED: ZOLPIDEM 5 MG TAB PO PRN (15:24)
[2020-02-09] MEDS ORDERED: MAG HYDROX/AL HYDROX/SIMETH 30 ML CUP PO PRN (15:24)
[2020-02-09] MEDS ORDERED: NITROGLYCERIN SL TABS 0.4 MG TAB SUBLINGUAL PRN (15:24)
[2020-02-09] MEDS ORDERED: SODIUM CHLORIDE 0.9% 1,000 ML IV SCH (15:30)
--- NOTE | 2020-02-09 18:14 | PN ---
PROGRESS NOTE DATE OF SERVICE: 02/08/2010 This 64-year-old gentleman admitted with chest pain, acute awx-JT-iocgpdr-elevation myocardial infarction, is scheduled for cardiac catheterization today. Cardiology is following the patient. No chest pain. No palpitations. No fever. PHYSICAL EXAMINATION: Alert and oriented x3. Pulse is 59, blood pressure 116/70, respiration 20, temperature 97.0, pulse ox 98% on room air. HEENT: Conjunctivae normal. NECK: No jugular venous distention. CARDIOVASCULAR SYSTEM: S1, S2 muffled. RESPIRATORY SYSTEM: Breath sounds diminished at the bases. No rhonchi. No crackles. ABDOMEN: Soft. NERVOUS SYSTEM: No focal deficit. LABS: Glucose 126. Troponins noted. Triglycerides 153, LDL is 137. ASSESSMENT: 1. Chest pain, possible acute izn-VX-solgzba-elevation myocardial infarction. 2. Troponin elevated to 5.110. 3. Syncope for evaluation; possibly cardiogenic. 4. Hyperlipidemia. 5. Elevated blood glucose; possibly diabetes mellitus, type 2. 6. Hypertension. 7. History of nicotine dependence. RECOMMENDATIONS AND DISCUSSION: I recommend to continue current medications, continue with the monitoring, symptomatic treatment. I would also recommend hemoglobin A1c and follow closely with Cardiology. Continue with antiplatelet agents, heparin. Guarded prognosis. Cardiac catheterization today. Further recommendations to follow. MMODL / IJN: [id number] /
[2020-02-09] MEDS: ATORVASTATIN 80 MG TAB PO SCH (20:20)
--- NOTE | 2020-02-09 21:11 | CC ---
CARDIAC CATHETERIZATION REPORT DATE OF SERVICE: 02/09/2020 PERFORMING PHYSICIAN: Ben Dotson M.D. PROCEDURES PERFORMED: 1. Selective right and left coronary angiogram. 2. Successful stenting of the distal right coronary artery using a 2.5 x 23 mm Xience drug-eluting stent which was post-dilated using a 3.5 mm balloon with an excellent angiographic result. 3. Successful stenting of the mid right coronary artery using a 3.0 x 23 mm Xience drug-eluting stent with an excellent angiographic result. 4. Successful stenting of the proximal right coronary artery using a 3.5 x 28 mm Xience drug-eluting stent with an excellent angiographic result. 5. Successful stenting of the proximal left anterior descending artery using a 3.25 x 15 mm Xience drug-eluting stent with an excellent angiographic result. INDICATION: This is a very pleasant 64-year-old gentleman who presented to the hospital with chest discomfort and ruled in for acute coronary event. He underwent an echocardiogram which revealed a preserved left ventricular systolic function. A heart catheterization was advised. APPROACH: Right radial artery. COMPLICATIONS: None. LEVEL OF SEDATION: Moderate, with sedation length of 90 minutes. PROCEDURE DESCRIPTION: After obtaining informed consent, the patient was brought to the cardiac labor relations supervisor. The right radial artery was cannulated using micropuncture technique. The micropuncture wire passed easily. Then I placed a 6-Turkmen sheath. I did give the patient 2 mg of verapamil IA and also heparin IV with continuous ACT monitoring throughout the procedure. I did selective right and left coronary angiogram with JR4 and JL4 catheters. After that I did intervene on the RCA and LAD. Please see separate paragraph for that. SELECTIVE CORONARY ANGIOGRAM: 1. The RCA is a large-caliber vessel and it is a dominant vessel. The RCA is occluded in the mid portion by the bifurcation of acute marginal branch. 2. The left main is angiographically normal. It bifurcates into left circumflex and left anterior descending artery. 3. The left circumflex is a large-caliber vessel. It is a nondominant vessel. The left circumflex is angiographically normal. It gives rise in the mid portion to first and second obtuse marginal branches; both appeared to be angiographically normal. 4. The LAD. The proximal LAD has a lesion that appeared to be in the range of 80%. The mid and distal LAD appeared to have mild disease only. The LAD gives rise to a diagonal branch which appeared to have mild disease only. PERCUTANEOUS CORONARY INTERVENTION OF THE RIGHT CORONARY ARTERY: Anticoagulation was initiated using the heparin only. I did cross the total occlusion of the RCA using a Whisper wire with the backup support of 2.0 x 12 mm yxiw-oyh-trtr balloon. Subsequently, I did balloon angioplasty of the RCA in the mid and distal portions, initially using a 2.5 x 12 mm balloon and then using a 3.0 x 12 mm balloon. After that, I deployed distally a 2.5 x 23 mm and in the mid 3.0 x 23 mm and proximally 3.5 x 28 mm. All of them were Xience drug-eluting stents. Finally I post-dilated the whole stented segment using 3.5 mm balloon. Final angiogram showed excellent angiographic results and the procedure was completed without any complication. I did engage the left main using a JL4-5 guide. I did wire the LAD using a Whisper wire. After that I did predilatation using a 2.5 x 12 mm balloon before I deployed a 3.25 x 15 mm Xience drug-eluting stent where the stent again was positioned under fluoroscopic guidance and deployed under its nominal pressure. The final angiogram showed excellent angiographic results and the procedure was completed without any complication. CONCLUSION: 1. Acute gui-KV-pghfexisw myocardial infarction. 2. Acute total occlusion of the RCA which was stented. 3. Critical disease involving the proximal LAD which was stented as well. POST-PROCEDURE MANAGEMENT: 1. Dual anti-platelet therapy. 2. Anti-ischemic medications. 3. Risk factor modifications. 4. Follow up with the patient. MMODL / IJN: [id number] /
[2020-02-10 01:19] LABS: Hemoglobin A1C 6.2 % (4.0-6.0)
[2020-02-10] MEDS: PANTOPRAZOLE 40 MG TABLET PO SCH (06:34)
[2020-02-10 07:34] LABS: Basophils # (A) 0.1 k/uL (0-0.2); Basophils % (A) 1 %; Eosinophils # (A) 0.2 k/uL (0-0.7); Eosinophils % (A) 4 %; HCT 38.7 % (39.0-53.0); HGB 13.2 gm/dL (13.0-17.5); Lymphocytes # (A) 1.5 k/uL (1.0-4.8); Lymphocytes % (A) 26 %; MCH 32.2 pg (25.0-35.0); MCV 94.5 fL (80.0-100.0); Mean Platelet Volume 7.1; Monocytes # (A) 0.3 k/uL (0-1.0); Monocytes % (A) 6 %; Neutrophils # (A) 3.7 k/uL (1.3-7.7); Neutrophils % (A) 62 %; Platelet Count 204 k/uL (150-450); RBC 4.09 m/uL (4.30-5.90); RDW 12.3 % (11.5-15.5); WBC 5.9 k/uL (3.8-10.6)
[2020-02-10 07:45] LABS: African American GFR (CKD) >90 (>60 ml/min/1.73 sqM); Anion Gap 3 mmol/L; Blood Urea Nitrogen 14 mg/dL (9-20); Calcium 8.7 mg/dL (8.4-10.2); Carbon Dioxide 28 mmol/L (22-30); Chloride 106 mmol/L (98-107); Glucose 111 mg/dL (74-99); Non-African American GFR(CKD) >90 (>60 ml/min/1.73 sqM); Potassium 4.1 mmol/L (3.5-5.1); Sodium 137 mmol/L (137-145)
[2020-02-10] MEDS: PRASUGREL 10 MG TAB PO SCH (08:29)
[2020-02-10] MEDS: ASPIRIN 325 MG TAB PO SCH (08:29)
[2020-02-10] MEDS: NICOTINE 14MG/24HR PATCH TRANSDERM SCH (08:30)
--- NOTE | 2020-02-10 09:59 | P.PN ---
Subjective Progress Note Date: 02/10/20 Principal diagnosis: Chest pain This is a very pleasant 64-year-old gentleman with hypertension and dyslipidemia and smoking who presented to the hospital with chest discomfort and ruled in for acute coronary event. He underwent a heart catheterization and was found to have occluded RCA and critical disease involving the LAD. He underwent PCI of both the RCA and LAD. The patient was seen this morning. He is a central necrotic from the cardiovascular standpoint of view. He is on dual antiplatelet therapy along with high intensity statin. He is not on beta tonny because he is bradycardic. The echo showed normal LV function. I would advise monitor the patient for additional 24 hours for possible discharge home tomorrow. Objective - Vital Signs Vital signs: Vital Signs Temp 98.3 F 02/10/20 08:00 Pulse 60 02/10/20 04:00 Resp 16 02/10/20 08:00 BP 107/69 02/10/20 08:00 Pulse Ox 97 02/10/20 08:00 Intake & Output 02/09/20 02/10/20 02/10/20 18:59 06:59 18:59 Intake Total 680 Output Total 300 600 Balance 380 -600 Weight 96.9 kg Intake: IV 200 Oral 480 Output: Urine 300 600 Other: Voiding Method Urinal # Voids 1 2 - Constitutional General appearance: Present: no acute distress - Respiratory Respiratory: bilateral: CTA - Cardiovascular Rhythm: regular Heart sounds: normal: S1, S2 - Labs CBC & Chem 7: 02/10/20 06:48 02/10/20 06:48 Labs: Abnormal Lab Results - Last 24 Hours (Table) 02/09/20 02/10/20 02/10/20 Range/Units 02:32 06:48 06:48 RBC 4.09 L (4.30-5.90) m/uL Hct 38.7 L (39.0-53.0) % Glucose 111 H (74-99) mg/dL Hemoglobin A1c 6.2 H (4.0-6.0) % Assessment and Plan Assessment: Assessment #1 acute non-ST elevation myocardial infarction and status post PCI of the RCA and LAD #2 history of smoking #3 significant family history of coronary artery disease Plan #1 continue dual antiplatelet therapy #2 continue high intensity statin #3 avoid any AV jin tonny agents #4 monitor the patient for additional 24 hours
[2020-02-10 12:59] VITALS: BMI 26.6
--- NOTE | 2020-02-10 17:32 | PN ---
PROGRESS NOTE DATE OF SERVICE: 02/10/2020 This 64-year-old gentleman who was admitted with acute xnf-OQ-athuirb-elevation myocardial function underwent cardiac catheterization and stenting of the distal RCA, mid RCA, proximal RCA as well as proximal LAD by Dr. Dotson. The patient is being closely monitored. No chest pain. No palpitations. No fever. PHYSICAL EXAMINATION: Alert and oriented x3. Pulse 65, blood pressure 103/60, respiration 17, temperature 99.2, pulse ox 96% on room air. HEENT: Conjunctivae normal. NECK: No jugular venous distention. CARDIOVASCULAR SYSTEM: S1, S2 muffled. RESPIRATORY SYSTEM: Breath sounds diminished at the bases. No rhonchi. No crackles. ABDOMEN: Soft, non-tender. LEGS: No edema. No swelling. NERVOUS SYSTEM: No focal deficit. LABS: WBC 5.3, hemoglobin 13.2. Otherwise, lipids noted. ASSESSMENT: 1. Chest pain, acute ctm-ZZ-rpirvmc-elevation myocardial infarction, status post cardiac catheterization and stenting of the RCA x3 as well as LAD stenting. 2. Troponin elevated up to 5.110. 3. Syncope, possibly cardiogenic. 4. Hyperlipidemia. 5. Elevated blood glucose with hemoglobin A1c of 6.2. Possible impaired glucose tolerance. 6. Hypertension. 7. History of nicotine dependence. RECOMMENDATIONS AND DISCUSSION: I recommend to continue current medications, continue with the monitoring, symptomatic treatment. Continue antiplatelet agent. Continue Lipitor. Continue the rest of the medications. Smoking cessation discussed with the patient. Prognosis guarded. Further recommendations to follow. MMODL / IJN: [id number] /
[2020-02-10] MEDS: ATORVASTATIN 80 MG TAB PO SCH (20:00)
[2020-02-11] MEDS: PANTOPRAZOLE 40 MG TABLET PO SCH (06:54)
[2020-02-11 07:37] LABS: Basophils % (A) 1 %; Eosinophils # (A) 0.2 k/uL (0-0.7); Eosinophils % (A) 4 %; HGB 13.7 gm/dL (13.0-17.5); Lymphocytes # (A) 1.5 k/uL (1.0-4.8); Lymphocytes % (A) 24 %; MCH 32.3 pg (25.0-35.0); MCHC 34.3 g/dL (31.0-37.0); Mean Platelet Volume 6.9; Monocytes # (A) 0.4 k/uL (0-1.0); Monocytes % (A) 6 %; Neutrophils % (A) 64 %; Platelet Count 227 k/uL (150-450); RBC 4.26 m/uL (4.30-5.90); RDW 12.3 % (11.5-15.5); WBC 6.3 k/uL (3.8-10.6)
[2020-02-11 07:50] LABS: African American GFR (CKD) >90 (>60 ml/min/1.73 sqM); Anion Gap 4 mmol/L; Blood Urea Nitrogen 13 mg/dL (9-20); Calcium 9.1 mg/dL (8.4-10.2); Carbon Dioxide 28 mmol/L (22-30); Chloride 104 mmol/L (98-107); Glucose 109 mg/dL (74-99); Non-African American GFR(CKD) >90 (>60 ml/min/1.73 sqM); Potassium 4.3 mmol/L (3.5-5.1); Sodium 136 mmol/L (137-145)
[2020-02-11] MEDS: NICOTINE 14MG/24HR PATCH TRANSDERM SCH (08:43)
[2020-02-11] MEDS: PRASUGREL 10 MG TAB PO SCH (08:44)
[2020-02-11] MEDS: ASPIRIN 325 MG TAB PO SCH (08:44)
[2020-02-11 08:46] VITALS: RESP 16; TEMP 98.1
--- NOTE | 2020-02-11 09:58 | P.PN ---
Subjective Progress Note Date: 02/11/20 Principal diagnosis: Chest pain This is a very pleasant 64-year-old gentleman with hypertension and dyslipidemia and smoking who presented to the hospital with chest discomfort and ruled in for acute coronary event. He underwent a heart catheterization and was found to have occluded RCA and critical disease involving the LAD. He underwent PCI of both the RCA and LAD. The patient was seen today 02/11/2020. He is asymptomatic. He is hemodynamically stable. He is on dual antiplatelet therapy along with high intensity statin. From the cardiac vascular standpoint of view, the patient can be discharged home Objective - Vital Signs Vital signs: Vital Signs Temp 98.1 F 02/11/20 08:00 Pulse 69 02/11/20 08:00 Resp 16 02/11/20 08:00 BP 113/74 02/11/20 08:00 Pulse Ox 96 02/11/20 08:00 Intake & Output 02/10/20 02/11/20 02/11/20 18:59 06:59 18:59 Intake Total 680 Balance 680 Weight 96.9 kg 96.3 kg Intake: Oral 680 Other: Voiding Method Urinal Urinal # Voids 3 - Constitutional General appearance: Present: no acute distress - Respiratory Respiratory: bilateral: CTA - Cardiovascular Rhythm: regular Heart sounds: normal: S1, S2 - Labs CBC & Chem 7: 02/11/20 06:57 02/11/20 06:57 Labs: Abnormal Lab Results - Last 24 Hours (Table) 02/11/20 02/11/20 Range/Units 06:57 06:57 RBC 4.26 L (4.30-5.90) m/uL Sodium 136 L (137-145) mmol/L Glucose 109 H (74-99) mg/dL Assessment and Plan Assessment: Assessment #1 acute non-ST elevation myocardial infarction and status post PCI of the RCA and LAD #2 history of smoking #3 significant family history of coronary artery disease Plan #1 continue dual antiplatelet therapy #2 continue high intensity statin #3 the patient can be discharged home
[2020-02-11 12:10] VITALS: BP 114/74; PULSE 64
--- NOTE | 2020-02-11 14:17 | P.DS ---
Providers Date of admission: 02/08/20 13:30 Expected date of discharge: 02/11/20 Attending physician: Jose Dow Consults: 02/08/20 13:28 Consult Physician Urgent Consulting Provider: Ben Dotson Consult Reason/Comments: NSTEMI Do you want consulting provider notified?: Already Contacted 02/09/20 15:24 Consult Physician Routine Consulting Provider: [facility] Consult Reason/Comments: Post Interventional patient Do you want consulting provider notified?: Already Contacted Primary care physician: Stated None Hospital Course: Final diagnosis Chest pain, acute non-ST segment elevation myocardial infarction, status post cardiac catheterization and stenting of the RCA 3 as well as LAD stenting Troponin elevated up to 5.110 Syncope, possibly cardiogenic [place] hyperlipidemia Elevated blood glucose with hemoglobin A1C of 6.2, possibly impaired glucose tolerance Hypertension History of nicotine dependence Full code Discharge disposition Patient is being discharged in a stable condition with guarded prognosis to home. Patient will follow-up with Dr. Henry in the outpatient setting upon discharge. Patient is also instructed to follow-up with Dr. Dotson in the outpatient setting. Patient will continue on daily aspirin along with Effient and Lipitor in the outpatient setting upon discharge. Total time taken is greater than 35 minutes. Hospital course This is a 64-year-old male who was recently admitted with acute non-ST segment elevation myocardial infarction and underwent cardiac catheterization with stenting to the distal RCA, mid RCA, proximal RCA, as well as proximal LAD with Dr. Dotson. Patient will follow-up with cardiology in the outpatient setting as discussed and scheduled. Also instructed to follow-up with Dr. Henry upon discharge. Patient will continue on aspirin, Effient, Lipitor and home medications have been resumed. Currently no reports of chest pain, shortness of breath, or palpitations. Patient is afebrile. No reports of nausea or vomiting and patient is tolerating diet. Patient will be discharged home today. On exam vital signs are stable. Temp is 98.1F, pulse is 69, respirations are 16, blood pressure is 113/74, oxygen saturation is 96% on room air. Cardio S1, S2 are muffled. Respiratory system shows diminished breath sounds at the bases with no wheezing or rhonchi noted. Abdomen is soft and nontender. Nervous system shows no focal deficits. Please refer to medication reconciliation sheet for a list of medications. Patient Condition at Discharge: Stable Plan - Discharge Summary Discharge Rx Participant: Yes New Discharge Prescriptions: New Aspirin 81 mg PO DAILY 30 Days #30 chewable Prasugrel [Effient] 10 mg PO DAILY 30 Days #30 tab Atorvastatin [Lipitor] 40 mg PO HS 30 Days #30 tablet Nitroglycerin Sl Tabs [Nitrostat] 0.4 mg SUBLINGUAL Q5M PRN #30 tab PRN Reason: Chest Pain Acetaminophen Tab [Tylenol] 500 mg PO Q6HR PRN tab PRN Reason: Fever And/ Or Pain Discharge Medication List Acetaminophen Tab [Tylenol] 500 mg PO Q6HR PRN tab 02/11/20 [Rx] Aspirin 81 mg PO DAILY 30 Days #30 chewable 02/11/20 [Rx] Atorvastatin [Lipitor] 40 mg PO HS 30 Days #30 tablet 02/11/20 [Rx] Nitroglycerin Sl Tabs [Nitrostat] 0.4 mg SUBLINGUAL Q5M PRN #30 tab 02/11/20 [Rx] Prasugrel [Effient] 10 mg PO DAILY 30 Days #30 tab 02/11/20 [Rx] Follow up Appointment(s)/Referral(s): Sherrill Henry MD [REFERRING] - 1 Week Ben Dotson MD [STAFF PHYSICIAN] - 1 Week Patient Instructions/Handouts: *Surgery [facility] - After Heart Catheterization - Procedure Analyst Instructions, Heart Attack (DC), How to Stop Smoking (DC), After Radial Heart Catheterization (GEN) Activity/Diet/Wound Care/Special Instructions: Activity Limited until follow-up Follow-up with primary care provider upon discharge Continue current diet Follow Up with cardiology in the outpatient setting Discharge Disposition: HOME SELF-CARE
== END 2020-02-11 13:27 | disposition home or self-care (01) | DRG 246 ==
LOC: EC 11:35 → 3SCARD 13:30
PROVIDERS: ADMIT Hospitalist; ATTEND Hospitalist
PROC: B2111ZZ Fluoroscopy of Multiple Coronary Arteries using Low Osmolar Contrast (ICD-10-PCS; principal; 2020-02-09 16:40)
PROC: 027137Z Dilation of Coronary Artery, Two Arteries with Four or More Drug-eluting Intraluminal Devices, Percutaneous Approach (ICD-10-PCS; principal; 2020-02-09 16:40)
PROC: 4A023N7 Measurement of Cardiac Sampling and Pressure, Left Heart, Percutaneous Approach (ICD-10-PCS; principal; 2020-02-09 16:40)
DX: I21.4 Non-ST elevation (NSTEMI) myocardial infarction (principal); I25.10 Atherosclerotic heart disease of native coronary artery without angina pectoris; I10 Essential (primary) hypertension; F17.200 Nicotine dependence, unspecified, uncomplicated; E78.5 Hyperlipidemia, unspecified; I45.10 Unspecified right bundle-branch block; I25.82 Chronic total occlusion of coronary artery; I25.2 Old myocardial infarction; Z79.82 Long term (current) use of aspirin; Z82.49 Family history of ischemic heart disease and other diseases of the circulatory system; Z83.3 Family history of diabetes mellitus
CPT/HCPCS: 36415; 70450; 71046; 80048; 80053; 80061; 81003; 83036; 83690; 83735; 84484; 85025; 85610; 85730; 93005; 93306; 93454; 96365; 96376; 99291

== ENCOUNTER → 2020-05-19 | Outpatient (CLI) | payer OTHER | END | disposition home or self-care (01) | LOC: LABWHC1 10:19 | PROVIDERS: ATTEND Nurse Practitioner Adult Health | DX: E78.5 Hyperlipidemia, unspecified (principal) | CPT/HCPCS: 36415; 80061 ==

== ENCOUNTER 2020-11-06 09:07 | Outpatient (CLI) | payer OTHER ==
--- NOTE | 2020-11-06 09:34 | ED ---
URI HPI - General Chief Complaint: Upper Respiratory Infection Stated Complaint: lightheaded, dizziness, cough Time Seen by Provider: 11/06/20 09:20 Source: family Mode of arrival: ambulatory Limitations: no limitations - History of Present Illness Initial Comments: Patient is a 65-year-old male presenting with chief complaint of Gen. overall weakness. Patient has been feeling ill for 1 week, reports to be getting better. Patient presents sounds sound clear bilaterally with no distress or shortness of breath. Patient medical history is positive for Catheterization with stent placement 9 months ago. Patient stable with no signs of distress at this time. - Related Data Home Medications Medication Instructions Recorded Confirmed Atorvastatin [Lipitor] 80 mg PO HS 11/06/20 11/06/20 Previous Rx's Medication Instructions Recorded Aspirin 81 mg PO DAILY 30 Days #30 chewable 02/11/20 Nitroglycerin Sl Tabs [Nitrostat] 0.4 mg SUBLINGUAL Q5M PRN #30 tab 02/11/20 Prasugrel [Effient] 10 mg PO DAILY 30 Days #30 tab 02/11/20 Allergies Allergy/AdvReac Type Severity Reaction Status Date / Time No Known Allergies Allergy Verified 11/06/20 10:21 Review of Systems ROS Statement: Those systems with pertinent positive or pertinent negative responses have been documented in the HPI. ROS Other: All systems not noted in ROS Statement are negative. Past Medical History Past Medical History: Hypertension, Myocardial Infarction ([place]) History of Any Multi-Drug Resistant Organisms: None Reported Past Surgical History: Heart Catheterization With Stent Past Anesthesia/Blood Transfusion Reactions: No Reported Reaction Past Psychological History: No Psychological Hx Reported Smoking Status: Never smoker Past Alcohol Use History: Occasional Past Drug Use History: None Reported - Past Family History Father Family Medical History: Diabetes Mellitus, Myocardial Infarction ([place]) Mother Family Medical History: Diabetes Mellitus, Myocardial Infarction ([place]) General Exam Limitations: no limitations General appearance: alert, in no apparent distress (Overall weakness) Head exam: Present: atraumatic, normocephalic, normal inspection Eye exam: Present: normal appearance, PERRL, EOMI. Absent: scleral icterus, conjunctival injection, periorbital swelling ENT exam: Present: normal exam, mucous membranes moist Neck exam: Present: normal inspection. Absent: tenderness, meningismus, lymphadenopathy Respiratory exam: Present: normal lung sounds bilaterally. Absent: respiratory distress, wheezes, rales, rhonchi, stridor Cardiovascular Exam: Present: bradycardia GI/Abdominal exam: Present: soft, normal bowel sounds. Absent: distended, tenderness, guarding, rebound, rigid Extremities exam: Present: normal inspection, full ROM, normal capillary refill. Absent: tenderness, pedal edema, joint swelling, calf tenderness Back exam: Present: normal inspection Neurological exam: Present: alert, oriented X3, CN II-XII intact Psychiatric exam: Present: normal affect, normal mood Skin exam: Present: warm, dry, intact, normal color. Absent: rash Course Vital Signs 11/06/20 09:16 Temperature 98 F Pulse Rate 56 L Respiratory 18 Rate Blood Pressure 148/89 O2 Sat by Pulse 97 Oximetry Medical Decision Making - Medical Decision Making Patient is positive for COVID-19. Vitals are stable. Patient was given monoclonal antibodies will be discharged in stable condition. - Lab Data Lab Results 11/06/20 Range/Units 10:03 Coronavirus (PCR) Detected A (Not Detectd) Disposition Clinical Impression: COVID-19 Disposition: HOME SELF-CARE Condition: Stable Instructions (If sedation given, give patient instructions): Coronavirus Disease 2019 (COVID-19) Additional Instructions: Please return to the Emergency Department if symptoms worsen or any other concerns. Is patient prescribed a controlled substance at d/c from ED?: No Referrals: Rajat Zeng DO [Primary Care Provider] - 1-2 days Time of Disposition: 10:50
[2020-11-06] MEDS ORDERED: SODIUM CHLORIDE 0.9% 50 ML IVPB ONE (11:30)
[2020-11-06] MEDS ORDERED: CASIRIVIMAB/IMDEVIMAB (EUA) 1,200 MG in SODIUM CHLORIDE 0.9% 100 ML IVPB ONE (12:00)
[2020-11-06 12:35] VITALS: RESP 16
[2020-11-06 12:36] VITALS: PULSE 56
[2020-11-06 12:50] VITALS: BP 108/69; TEMP 98.5
[2020-11-06] MEDS ORDERED: SODIUM CHLORIDE 0.9% 500 ML 500 ML in EMPTY BAG 1 BAG IV PRN (13:47)
== END 2020-11-06 13:50 ==
LOC: EC 09:07 → PROCWHC3 09:07 → EDSTATUS 12:09 → EC 13:45 → PROCWHC3 13:50
PROVIDERS: ATTEND Physician Assistant
DX: U07.1 COVID-19 (principal); I10 Essential (primary) hypertension; I25.2 Old myocardial infarction; Z79.82 Long term (current) use of aspirin; Z79.899 Other long term (current) drug therapy; Z83.3 Family history of diabetes mellitus; Z82.49 Family history of ischemic heart disease and other diseases of the circulatory system
CPT/HCPCS: 99285; 96365; 87635; Q0243; M0243

== ENCOUNTER → 2023-08-15 | Outpatient (CLI) | payer OTHER, MEDICARE ==
[2023-08-15 18:50] LABS: ALT 23 U/L (10-49); AST 24 U/L (14-35); Chol/HDL Ratio 3.22 Ratio; LDL Cholesterol,Calculated 90.3 mg/dL (0.0-131.0)
== END | disposition home or self-care (01) ==
LOC: LABWHC1 11:43
PROVIDERS: ATTEND Internal Medicine Interventional Cardiology
DX: E78.00 Pure hypercholesterolemia, unspecified (principal)
CPT/HCPCS: 36415; 80061; 84450; 84460

== ENCOUNTER 2023-10-18 07:26 | Emergency (ER) | payer MEDICARE, OTHER ==
--- NOTE | 2023-10-18 08:09 | ED ---
General Adult HPI - General Chief complaint: Extremity Injury, Upper Stated complaint: finger injury [facility] Time Seen by Provider: 10/18/23 08:07 Source: patient Mode of arrival: ambulatory Limitations: no limitations - History of Present Illness Initial comments: 68-year-old male presents to emergency department with chief complaint of laceration to right 4th finger from closing trailer hitch. Patient states that he was at the trailer hitch when somebody was moving a lawn more causing her to lift up crushing his finger between the hitch and bumper. Patient states he has pain, some active bleeding from the site. Patient offers no other symptoms or injuries, denies any paresthesias. Denies having tetanus within last 10 years. - Related Data Home Medications Medication Instructions Recorded Confirmed Atorvastatin [Lipitor] 80 mg PO HS 11/06/20 11/06/20 Previous Rx's Medication Instructions Recorded Aspirin 81 mg PO DAILY 30 Days #30 chewable 02/11/20 Nitroglycerin Sl Tabs [Nitrostat] 0.4 mg SUBLINGUAL Q5M PRN #30 tab 02/11/20 Prasugrel [Effient] 10 mg PO DAILY 30 Days #30 tab 02/11/20 Cephalexin [Keflex] 500 mg PO Q6HR #40 cap 10/18/23 Allergies Allergy/AdvReac Type Severity Reaction Status Date / Time No Known Allergies Allergy Verified 10/18/23 07:34 Review of Systems ROS Statement: Those systems with pertinent positive or pertinent negative responses have been documented in the HPI. ROS Other: All systems not noted in ROS Statement are negative. Skin: Reports: other (Laceration to 4th right finger) Past Medical History Past Medical History: Hypertension, Myocardial Infarction ([place]) Last Myocardial Infarction Date:: 02/11/2020 History of Any Multi-Drug Resistant Organisms: None Reported Past Surgical History: Heart Catheterization With Stent Past Anesthesia/Blood Transfusion Reactions: No Reported Reaction Date of Last Stent Placement:: 02/11/2020 Past Psychological History: No Psychological Hx Reported Smoking Status: Never smoker Past Alcohol Use History: Occasional Past Drug Use History: None Reported - Past Family History Father Family Medical History: Diabetes Mellitus, Myocardial Infarction ([place]) Mother Family Medical History: Diabetes Mellitus, Myocardial Infarction ([place]) General Exam Limitations: no limitations General appearance: alert, in no apparent distress Head exam: Present: atraumatic, normocephalic, normal inspection Eye exam: Present: normal appearance, PERRL, EOMI. Absent: scleral icterus, conjunctival injection, periorbital swelling ENT exam: Present: normal exam, mucous membranes moist Neck exam: Present: normal inspection. Absent: tenderness, meningismus, lympha denopathy Respiratory exam: Present: normal lung sounds bilaterally. Absent: respiratory distress, wheezes, rales, rhonchi, stridor Cardiovascular Exam: Present: regular rate, normal rhythm, normal heart sounds. Absent: systolic murmur, diastolic murmur, rubs, gallop, clicks Extremities exam: Present: full ROM, normal capillary refill. Absent: normal inspection (Laceration, crush injury impression nail avulsion involving the right finger fourth digit), tenderness, pedal edema, joint swelling, calf tenderness Neurological exam: Present: alert Skin exam: Present: warm, other (Laceration to right 4th finger 4cm with complete penetration distal phalange ) Course Vital Signs 10/18/23 07:32 Temperature 98.1 F Pulse Rate 67 Respiratory 20 Rate Blood Pressure 168/101 O2 Sat by Pulse 98 Oximetry Procedures - Laceration Laceration #2 Consent Obtained: verbal consent Indication: laceration Site: hand (4th digit) Size (cm): 4 Description: linear, irregular Depth: simple, single layer Anesthetic Used: lidocaine 1% Anesthesia Technique: nerve block Amount (mls): 10 Pre-repair: wound explored, irrigated extensively Type of Sutures: nylon Size of Sutures: 4-0 Number of Sutures: 9 Technique: simple, interrupted Patient Tolerated Procedure: well, no complications Laceration #1 Consent Obtained: verbal consent Indication: laceration Site: upper extremity, hand (4th digit) Size (cm): 5 Description: linear, irregular Depth: simple, single layer Anesthetic Used: lidocaine 1% Anesthesia Technique: nerve block Amount (mls): 10 Pre-repair: wound explored, irrigated extensively, deep structures intact Type of Sutures: nylon Size of Sutures: 4-0 Number of Sutures: 10 Technique: simple, interrupted Patient Tolerated Procedure: well, no complications Medical Decision Making - Medical Decision Making Was pt. sent in by a medical professional or institution (, PA, HALL TENDER, urgent care, hospital, or custodial...) When possible be specific @ -At bedtime Did you speak to anyone other than the patient for history (EMS, parent, family, police, friend...)? What history was obtained from this source @ -No Did you review nursing and triage notes (agree or disagree)? Why? @ -I reviewed and agree with nursing and triage notes Were old charts reviewed (outside hosp., previous admission, EMS record, old EKG, old radiological studies, urgent care reports/EKG's, custodial records)? Report findings @ -No old charts were reviewed Differential Diagnosis (chest pain, altered mental status, abdominal pain women, abdominal pain men, vaginal bleeding, weakness, fever, dyspnea, syncope, headache, dizziness, GI bleed, back pain, seizure, CVA, palpatations, mental health, musculoskeletal)? @ -Finger fracture, open finger fracture, laceration, nail avulsion EKG interpreted by me (3pts min.). @ -None none X-rays interpreted by me (1pt min.). @ -X-ray right hand fourth digit showing tuft fracture and soft tissue swelling, deformity CT interpreted by me (1pt min.). @ -None done U/S interpreted by me (1pt. min.). @ -None done What testing was considered but not performed or refused? (CT, X-rays, U/S, labs)? Why? @ -None What meds were considered but not given or refused? Why? @ -None Did you discuss the management of the patient with other professionals (professionals i.e. , PA, HALL TENDER, lab, RT, psych nurse, social service worker, entertainment reporter, teacher, security public safety officer, family caseworker)? Give summary @ -No Was smoking cessation discussed for >3mins.? @ -No Was critical care preformed (if so, how long)? @ -No Were there social determinants of health that impacted care today? How? (Homelessness, low income, unemployed, alcoholism, drug addiction, transportation, low edu. Level, literacy, decrease access to med. care, senior care, rehab)? @ -No Was there de-escalation of care discussed even if they declined (Discuss DNR or withdrawal of care, Hospice)? DNR status @ -No What co-morbidities impacted this encounter? (DM, HTN, Smoking, COPD, CAD, Can cer, CVA, ARF, Chemo, Hep., AIDS, mental health diagnosis, sleep apnea, morbid obesity)? @ -None Was patient admitted / discharged? Hospital course, mention meds given and route, prescriptions, significant lab abnormalities, going to OR and other pertinent info. @ -Discharge patient extensive crush injury, laceration and fracture involving the right hand fourth digit. Patient finger was approximated, wrapped and will follow-up with orthopedics. Undiagnosed new problem with uncertain prognosis? @ -No Drug Therapy requiring intensive monitoring for toxicity (Heparin, Nitro, Insulin, Cardizem)? @ -No Were any procedures done? @ -No Diagnosis/symptom? @ -Crush injury, finger laceration, open finger fracture, nail avulsion Acute, or Chronic, or Acute on Chronic? @ -Acute Uncomplicated (without systemic symptoms) or Complicated (systemic symptoms)? @ -Uncomplicated Side effects of treatment? @ -No Exacerbation, Progression, or Severe Exacerbation? @ -No Poses a threat to life or bodily function? How? (Chest pain, [place], [place], pneumonia, PE, COPD, DKA, ARF, appy, cholecystitis, CVA, Diverticulitis, Homicidal, Suicidal, threat to staff... and all critical care pts) @ -No Disposition Clinical Impression: Finger laceration, Open finger fracture, Crush injury, Nail avulsion Disposition: HOME SELF-CARE Condition: Good Additional Instructions: Have sutures removed in 10 days. Please return to the Emergency Department if symptoms worsen or any other concerns. Prescriptions: Cephalexin [Keflex] 500 mg PO Q6HR #40 cap Is patient prescribed a controlled substance at d/c from ED?: No Referrals: Yuliya Ortiz DO [Doctor of Osteopathic Medicine] - 1-2 days Time of Disposition: 09:54
--- NOTE | 2023-10-18 08:11 | XR ---
EXAMINATION TYPE: XR hand complete RT DATE OF EXAM: 10/18/2023 7:56 AM CLINICAL INDICATION: Male, 68 years old with history of Injury; H COMPARISON: None TECHNIQUE: XR hand complete RT Frontal, lateral and oblique views were obtained. FINDINGS/IMPRESSION: Displaced Tuft fracture of the fourth digit distal phalanx with soft tissue injury and soft tissue sw elling.
[2023-10-18] MEDS: ceFAZolin 1,000 MG VIAL (IM USE) IM STA (08:34)
[2023-10-18] MEDS: LIDOCAINE 1% INJ 10MG/ML (20 ML MDV) SQ ONE (08:35)
[2023-10-18] MEDS: DIPH,PERTUS(ACELL)TETVAC-LF 0.5 ML VIAL IM ONE (08:36)
[2023-10-18] MEDS: BACITRACIN OINT 1 EACH PACKET TOPICAL ONE (10:03)
[2023-10-18] MEDS: ACET/COD 300 MG/30 MG STARTER PACK 6 TAB BTL PO STA (10:03)
[2023-10-18 12:26] VITALS: BP 147/83; PULSE 68; RESP 18; TEMP 98.2
== END 2023-10-18 10:08 | disposition home or self-care (01) ==
LOC: EC 07:26
CPT/HCPCS: 12004; 90471; 90715; 96372; 99283

== ENCOUNTER 2024-07-20 05:03 | Emergency (ER) | payer MEDICARE, OTHER ==
--- NOTE | 2024-07-20 05:43 | ED ---
General Adult HPI - General Chief complaint: ENT Stated complaint: Nosebleed Time Seen by Provider: 07/20/24 05:25 Source: patient Mode of arrival: ambulatory Limitations: no limitations - History of Present Illness Initial comments: Patient is a pleasant 68-year-old gentleman presenting today for epistaxis. States nosebleed started on Friday after he had ridden his daughter's car with the heat on. States that bleeding only lasted for a few minutes and resolved with applying pressure. It has been occurring intermittently, when patient wakes up in the morning since then. Bleeding does not last for more than a few minutes. He states he has not lost significant blood. He is not on blood thinners. He states he feels it may be because his blood pressure is high. This morning when it started he noted a blood pressure systolic of 150. He took one of his home blood pressure medications prior to arrival. Bleeding has since stopped. He denies any associated lightheadedness, dizziness, changes in vision, numbness, weakness, chest pain, shortness of breath, fevers, sinus drainage or discharge. He does state that he has had a headache, that began yesterday, described as bilateral temporal and pressure-like in nature. He has had headaches but not as strong as this. HAND was gradual in onset. This headache has since resolved. He believes it is secondary to his high blood pressure. - Related Data Home Medications Medication Instructions Recorded Confirmed Atorvastatin [Lipitor] 80 mg PO HS 11/06/20 11/06/20 Previous Rx's Medication Instructions Recorded Aspirin 81 mg PO DAILY 30 Days #30 chewable 02/11/20 Nitroglycerin Sl Tabs [Nitrostat] 0.4 mg SUBLINGUAL Q5M PRN #30 tab 02/11/20 Prasugrel [Effient] 10 mg PO DAILY 30 Days #30 tab 02/11/20 Cephalexin [Keflex] 500 mg PO Q6HR #40 cap 10/18/23 Allergies Allergy/AdvReac Type Severity Reaction Status Date / Time No Known Allergies Allergy Verified 07/20/24 05:07 Review of Systems ROS Statement: Those systems with pertinent positive or pertinent negative responses have been documented in the HPI. ROS Other: All systems not noted in ROS Statement are negative. Past Medical History Past Medical History: Hypertension, Myocardial Infarction (MT) Last Myocardial Infarction Date:: 02/11/2020 History of Any Multi-Drug Resistant Organisms: None Reported Past Surgical History: Heart Catheterization With Stent Past Anesthesia/Blood Transfusion Reactions: No Reported Reaction Date of Last Stent Placement:: 02/11/2020 Past Psychological History: No Psychological Hx Reported Smoking Status: Never smoker Past Alcohol Use History: Occasional Past Drug Use History: None Reported - Past Family History Father Family Medical History: Diabetes Mellitus, Myocardial Infarction (MT) Mother Family Medical History: Diabetes Mellitus, Myocardial Infarction (MT) General Exam - General Exam Comments Initial Comments: PE: CONSTITUTIONAL: No apparent distress, well appearing SKIN: Warm, dry, no jaundice, hives or petechiae EYES: Pupils are equally round, extraocular movements intact without nystagmus, clear conjunctiva, non-icteric sclera HENT: Normocephalic, atraumatic, moist mucus membranes, oropharynx clear without exudates, mild erythema of the right nare with area of scant amount of blood along anterior right nare NECK: , Full range of motion, normal appearance PULMONARY: Clear to auscultation without wheezes, rhonchi, or rales, normal excursion, no accessory muscle use and no stridor CARDIOVASCULAR: Regular rate, rhythm, normal S1 and S2. No appreciated murmurs, rubs or gallops. Strong radial pulses with intact distal perfusion. GASTROINTESTINAL: Soft, active bowel sounds throughout, non-tender, non- distended, no palpable masses, no rebound or guarding. No hepatosplenomegaly MUSCULOSKELETAL: Extremities have no gross deformity, no edema, redness, or swelling. NEUROLOGIC:_a/o x 3, GCS 15, normal mentation and speech. Moves all extremities x 4 without motor or sensory deficit, no focal neurologic deficits PSYCHIATRIC:_normal mood and affect, thought process is clear and linear Limitations: no limitations Course Vital Signs 07/20/24 07/20/24 05:05 06:48 Temperature 97.2 F L 97.9 F Pulse Rate 57 L 54 L Respiratory 18 16 Rate Blood Pressure 161/87 137/77 O2 Sat by Pulse 98 96 Oximetry Medical Decision Making - Medical Decision Making Was pt. sent in by a medical professional or institution (, PA, MAIL PROCESSOR, urgent care, hospital, or usp...) When possible be specific @ -No Did you speak to anyone other than the patient for history (EMS, parent, family, police, friend...)? What history was obtained from this source @ -No Did you review nursing and triage notes (agree or disagree)? Why? @ -I reviewed and agree with nursing and triage notes Were old charts reviewed (outside hosp., previous admission, EMS record, old EKG, old radiological studies, urgent care reports/EKG's, usp records)? Report findings @ -Medical records were not reviewed Differential Diagnosis (chest pain, altered mental status, abdominal pain women, abdominal pain men, vaginal bleeding, weakness, fever, dyspnea, syncope, headache, dizziness, GI bleed, back pain, seizure, CVA, palpatations, mental health, musculoskeletal)? @ -Differential Headache: Migraine, tension, cluster, intracranial mass, temporal arteritis, acute closure glaucoma, intercranial hemorrhage, mastoiditis, sinusitis, head injury, this is not meant to be an all-inclusive list. EKG interpreted by me (3pts min.). @ -As above X-rays interpreted by me (1pt min.). @ -None done CT interpreted by me (1pt min.). @Personally reviewed CT brain I see no evidence of hemorrhage or mass effect U/S interpreted by me (1pt. min.). @ -None done What testing was considered but not performed or refused? (CT, X-rays, U/S, labs)? Why? @ -None What meds were considered but not given or refused? Why? @ -None Did you discuss the management of the patient with other professionals (professionals i.e. , PA, MAIL PROCESSOR, lab, RT, psych nurse, healthcare social worker, maintainer plant, teacher, electorate officer, watch caser)? Give summary @ -No Was smoking cessation discussed for >3mins.? @ -No Was critical care preformed (if so, how long)? @ -No Were there social determinants of health that impacted care today? How? (Homelessness, low income, unemployed, alcoholism, drug addiction, transportation, low edu. Level, literacy, decrease access to med. care, [facility], rehab)? @ -No Was there de-escalation of care discussed even if they declined (Discuss DNR or withdrawal of care, Hospice)? @ -No What co-morbidities impacted this encounter? (DM, HTN, Smoking, COPD, CAD, Cancer, CVA, ARF, Chemo, Hep., AIDS, mental health diagnosis, sleep apnea, morbid obesity)? @Hypertension Was patient admitted / discharged? Hospital course, mention meds given and route, prescriptions, significant lab abnormalities, going to OR and other pertinent info. @ -Discharged- This is a pleasant 68-year-old gentleman presenting today for epistaxis. Blood pressure mildly hypertensive on arrival, blood pressure 161/87. Bleeding has since stopped in my assessment. There is a small area of identified source of bleeding in the right anterior nare. Will cauterized with silver nitrate and apply afrin. Patient also endorsed new headaches- plan to obtain CT brain to ensure no acute intracranial process/ intracranial mass. Of note, HAND was not described as sudden in onset, has since resolved and has no associated neurodeficits so should CT brain be unremarkable, I do not feel CTA or further workup indicated to evaluate for SAH. CT brain negative for acute process. On reassessment patient still has no active bleeding from the right nare. Silver nitrate was applied. Patient be discharged home with Afrin. Updated patient to CT findings. Discussed plan for discharge, discussed symptomatic care of epistaxis as well as signs and symptoms to monitor for warranting return to the ER. Patient understanding and agreeable plan of care. In my medical judgment there is currently no evidence of an immediate life-threatening or surgical condition. Discharge is therefore indicated at this time. Discharge treatment instructions, follow up instructions, and appropriate emergency department return precautions were discussed with the patient and/or medical decision maker. Patient and/or medical decision maker expressed understanding of and agreed with the treatment plan, follow up instructions, and emergency department return precaution. All patient's and/or medical decision maker's questions were answered. The patient was instructed to return to the ED for any changes in symptoms, persistent symptoms, inability to obtain proper follow-up or for any further concerns. Patient received verbal and written instructions for this condition. Undiagnosed new problem with uncertain prognosis? @ -No Drug Therapy requiring intensive monitoring for toxicity (Heparin, Nitro, Insulin, Cardizem)? @ -No Were any procedures done? @ -No Diagnosis/symptom? @Epistaxis, headache Acute, or Chronic, or Acute on Chronic? @Acute Uncomplicated (without systemic symptoms) or Complicated (systemic symptoms)? Uncomplicated Side effects of treatment? @ -No Exacerbation, Progression, or Severe Exacerbation? @ -No Poses a threat to life or bodily function? How? (Chest pain, [place], MT, pneumonia, PE, COPD, DKA, ARF, appy, cholecystitis, CVA, Diverticulitis, Homicidal, Suicidal, threat to staff... and all critical care pts) @ -No Disposition Clinical Impression: Epistaxis, Headache Disposition: HOME SELF-CARE Condition: Good Instructions (If sedation given, give patient instructions): Nosebleed (ED) Additional Instructions: Every disease is a spectrum and a small chance still exists that a serious condition could develop, for this reason, please monitor yourself closely for new, changing or worsening symptoms, symptoms that persist beyond 48 hours, sudden onset or severe headache that you cannot control at home with home pain meds, Headache with nausea, vomiting, changes in vision, slurred speech, numbness, weakness or other strokelike symptoms, nosebleed that you cannot stop after 20 minutes of pressure, or experiencing blood loss to the point of lightheadedness or shortness of breath, fever, inability to tolerate/keep down fluids or your medications, inability to follow up with outpatient providers as instructed and should you experience these symptoms or should you have any further concerns for your wellbeing please return to the ED or call 911 immediately. You may apply Afrin nasal spray once daily, for 1 week, if you notice nosebleed return, apply gentle pressure for 20 minutes. You may also apply small amount of vaseline on the inside of your nose before bedtime to keep area moist. Please avoid dry hot air and use a humidifier in your room nightly. PLEASE call your primary care physician as soon as possible to arrange / discuss plan for followup appointment. Appointment in the next 1-3 days is strongly encouraged if possible. PLEASE let us know here before you leave if there is anything further we can do to be of any assistance. Take care and feel Better! Is patient prescribed a controlled substance at d/c from ED?: No Referrals: Ruchi Barone, PAC [Primary Care Provider] - 1-2 days
--- NOTE | 2024-07-20 06:24 | CT ---
EXAMINATION TYPE: CT brain wo con DATE OF EXAM: 07/20/2024 COMPARISON: CT brain February 08, 2020 CLINICAL INDICATION: Male, 68 years old with history of new onset headaches, bilat. no neuro deficits , HAND and nose bleed TECHNIQUE: CT scan of the head is performed without contrast. CT DLP: 1215.6 mGycm. Automated Exposure Control for Dose Reduction was Utilized. FINDINGS: There is no acute intracranial hemorrhage or midline shift identified. There is mild diff use ventricular and sulcal prominence redemonstrated. Howell-white matter differentiation is preserved. The globes are intact and the visualized sinuses are clear. IMPRESSION: No acute intracranial hemorrhage or midline shift. No significant change from prior. [facility], , 07/20/2024 6:22 AM
[2024-07-20] MEDS: OXYMETAZOLINE 0.05% NASL SPRAY 1 SPRAY BOTTLE NASAL STA (06:35)
[2024-07-20] MEDS: SILVER NITRATE APPLICATOR 1 EACH STICK..EA. TOPICAL STA (06:36)
[2024-07-20 06:51] VITALS: BP 137/77; PULSE 54; RESP 16; TEMP 97.9
== END 2024-07-20 06:50 | disposition home or self-care (01) ==
LOC: EC 05:03
DX: R04.0 Epistaxis (principal); R51.9 Headache, unspecified; I10 Essential (primary) hypertension
CPT/HCPCS: 70450; 99284